=== PATIENT | female | born 1965 | race Caucasian/White ===

== ENCOUNTER → 2019-10-06 | Outpatient (CLI) | payer MEDICARE, OTHER ==
--- NOTE | 2019-10-06 14:58 | CT ---
EXAMINATION TYPE: CT chest wo con DATE OF EXAM: 10/06/2019 COMPARISON: HISTORY: interstitial lung disease CT DLP: 1276.4 mGycm, Automated exposure control for dose reduction was used. CONTRAST: None TECHNIQUE: Axial images were obtained at 1 mm thick sections at 10 mm intervals. This will limit po rtions of the examination which may not be visualized within the [id number]. Images were obtained in the prone and supine views. FINDINGS: Portion of the thyroid visualized is normal. No suspicious lung nodules or focal infiltrat es are present. There are a few scattered areas of pneumonitis which are nonspecific. No suspicious p ulmonary fibrosis is evident. No significant change between prone and supine imaging is evident. No enlarged mediastinal or hilar adenopathy is evident. The ascending aorta diameter at the level o f the main pulmonary artery is 4.9 cm. The main pulmonary artery diameter at the bifurcation is 3.[address] sections are obtained through the upper abdomen. Abdomen is essentially unremarkable. IMPRESSIONS: 1. Aneurysmal dilatation of the ascending thoracic aorta. Standard CT chest recommended for complete evaluation of the aorta. 2. Few scattered small areas of pneumonitis change which are nonspecific. Follow up CT chest can be p erformed as clinically.
== END | disposition home or self-care (01) ==
LOC: RADCTMAIN 11:45
PROVIDERS: ATTEND Internal Medicine
DX: I71.2 Thoracic aortic aneurysm, without rupture (principal); J84.9 Interstitial pulmonary disease, unspecified
CPT/HCPCS: 71250